=== PATIENT | female | born 1985 | race Caucasian/White ===

== ENCOUNTER → 2025-05-17 | Day surgery (SDC) | payer OTHER | END | disposition home or self-care (01) | LOC: JRADUS-SUR 08:59 → JRADUS 08:59 | PROVIDERS: ATTEND Obstetrics & Gynecology | PROC: 07D63ZX Extraction of Left Axillary Lymphatic, Percutaneous Approach, Diagnostic (ICD-10-PCS; principal; 2025-05-17) | DX: R59.0 Localized enlarged lymph nodes (principal) | CPT/HCPCS: 19083; 76942-TC; 87899; 88305-TC; A4648 ==